=== PATIENT | female | born 1950 | race Caucasian/White ===

== ENCOUNTER → 2024-10-08 | Outpatient (CLI) | payer MEDICARE, MEDICAID ==
[~2024-10-08] MED LIST: AMLO10TA80 PO; ASPI-1497 PO; DOCU-138 PO; EMPA25TA MT; FAMO20TA8 PO; GLV55 PO; HYDR-4001 PO; LANTUSUD SUBCUT; LORA10TA7 PO; LOSA50TA41 MT; METO-539 PO; PRAV40TA58 PO; SITA100T11 PO; SULI200T4 PO
== END | disposition home or self-care (01) ==
LOC: RAD 12:14
DX: S82.301A Unspecified fracture of lower end of right tibia, initial encounter for closed fracture (principal); S82.831A Other fracture of upper and lower end of right fibula, initial encounter for closed fracture; S52.501A Unspecified fracture of the lower end of right radius, initial encounter for closed fracture; M77.31 Calcaneal spur, right foot; M77.8 Other enthesopathies, not elsewhere classified; M25.871 Other specified joint disorders, right ankle and foot; X58.XXXA Exposure to other specified factors, initial encounter; Y93.89 Activity, other specified; Y92.89 Other specified places as the place of occurrence of the external cause; Y99.8 Other external cause status
CPT/HCPCS: 73090; 73610

== ENCOUNTER → 2024-11-05 | Outpatient (CLI) | payer MEDICARE, MEDICAID | END | disposition home or self-care (01) | LOC: RAD 12:14 | DX: S82.891A Other fracture of right lower leg, initial encounter for closed fracture (principal); S52.91XA Unspecified fracture of right forearm, initial encounter for closed fracture; M25.831 Other specified joint disorders, right wrist; X58.XXXA Exposure to other specified factors, initial encounter; Y93.89 Activity, other specified; Y92.89 Other specified places as the place of occurrence of the external cause; Y99.8 Other external cause status; Z98.890 Other specified postprocedural states | CPT/HCPCS: 73110; 73610 ==